=== PATIENT | female | born 1965 | race Caucasian/White ===

== ENCOUNTER 2023-11-13 13:05 | Emergency (ER) | payer OTHER ==
[~2023-11-13] VITALS: Ht 167.6 cm; Wt 72.6 kg
== END 2023-11-13 16:37 | disposition home or self-care (01) ==
LOC: ER 13:05
DX: S09.90XA Unspecified injury of head, initial encounter (principal); V49.9XXA Car occupant (driver) (passenger) injured in unspecified traffic accident, initial encounter
CPT/HCPCS: 70450; 73060; 73070; 99284-25